=== PATIENT | male | born 1945 | race Caucasian/White ===

== ENCOUNTER 2017-03-12 14:29 | Emergency (ER) | payer OTHER ==
[~2017-03-12] VITALS: Ht 172.7 cm; Wt 84.8 kg
[2017-03-12] MEDS ORDERED: NEXIUM40 MG PO (14:41)
[2017-03-12] MEDS ORDERED: RANITIDINE HCL300 MG PO (14:42)
[2017-03-12] MEDS ORDERED: PRINIVIL20 MG PO (14:42)
[2017-03-12] MEDS ORDERED: SYNTHROID112 MCG PO (14:42)
[2017-03-12] MEDS ORDERED: FLOMAX0.4 MG PO (14:42)
[2017-03-12] MEDS ORDERED: CO Q-10100 MG PO (14:43)
[2017-03-12] MEDS ORDERED: MELATONIN3 MG PO (14:43)
[2017-03-12] MEDS ORDERED: GABAPENTIN 100100 MG PO (14:43)
[2017-03-12 15:23] LABS: HEMOGLOBIN 14.5 gm/dL (14.0-18.0); MCH 29.4 pg (26.0-34.0); MCHC 33.8 g/dL (28.0-37.0); MCV 86.9 fL (80.0-100.0); MPV 8.5 fl. (7.2-11.1); RBC 4.95 mil/uL (4.50-6.00); WBC 7.1 thou/uL (4.0-11.0)
[2017-03-12 15:27] LABS: CALCIUM 8.4 mg/dL (8.5-10.1); POTASSIUM 3.8 mmol/L (3.5-5.1)
[2017-03-12 15:38] LABS: ALBUMIN 3.7 g/dL (3.4-5.0); TOTAL BILIRUBIN 1.2 mg/dL (<0.1-1.0); TOTAL PROTEIN 7.1 g/dL (6.4-8.2)
[2017-03-12 15:41] LABS: URINE BILIRUBIN NEGATIVE (Negative); URINE BLOOD 3+ (Negative); URINE CLARITY CLEAR; URINE COLOR YELLOW; URINE GLUCOSE-RANDOM NEGATIVE (Negative); URINE KETONES NEGATIVE (Negative); URINE LEUKOCYTES-REFLEX NEGATIVE (Negative); URINE NITRITE-REFLEX NEGATIVE (Negative); URINE PROTEIN NEGATIVE (Negative); URINE SPECIFIC GRAVITY 1.025 (1.005-1.030); URINE UROBILINOGEN 0.2 E.U./dl (0.2-1.0)
[2017-03-12 15:46] LABS: SQUAMOUS 0-3 Few /LPF (0-3); URINE RBC >20 Many /HPF (0-2)
[2017-03-12 15:47] LABS: BACTERIA-REFLEX None Seen /HPF (None Seen); CASTS None Seen /LPF (None Seen); CRYSTALS None Seen /LPF (None Seen); URINE WBC-REFLEX 0-5 Rare /HPF (0-5)
[2017-03-12 16:00] VITALS: BP 165/83
== END 2017-03-12 16:02 | disposition home or self-care (01) ==
LOC: M.ERS 14:29
PROVIDERS: Physician Assistant
DX: N40.1 Benign prostatic hyperplasia with lower urinary tract symptoms (principal); R33.8 Other retention of urine; N13.8 Other obstructive and reflux uropathy; I10 Essential (primary) hypertension; E89.0 Postprocedural hypothyroidism

== ENCOUNTER → 2017-06-24 | Outpatient (CLI) | payer MEDICARE, OTHER ==
[~2017-06-24] MED LIST: CO Q-10100 MG PO; FLOMAX0.4 MG PO; GABAPENTIN 100100 MG PO; MELATONIN3 MG PO; NEXIUM40 MG PO; PRINIVIL20 MG PO; RANITIDINE HCL300 MG PO; SYNTHROID112 MCG PO
== END ==
LOC: M.MRI 06-18 12:34
DX: M47.892 Other spondylosis, cervical region (principal); I51.7 Cardiomegaly; M47.22 Other spondylosis with radiculopathy, cervical region; M48.02 Spinal stenosis, cervical region; M25.78 Osteophyte, vertebrae; M62.81 Muscle weakness (generalized); R07.89 Other chest pain; Z86.018 Personal history of other benign neoplasm

== ENCOUNTER → 2017-12-14 | Outpatient (CLI) | payer MEDICARE, OTHER | LOC: M.RAD 11:18 | DX: S52.501A Unspecified fracture of the lower end of right radius, initial encounter for closed fracture (principal); S52.601A Unspecified fracture of lower end of right ulna, initial encounter for closed fracture; I10 Essential (primary) hypertension; X58.XXXA Exposure to other specified factors, initial encounter; Y93.89 Activity, other specified; Y92.89 Other specified places as the place of occurrence of the external cause; Y99.8 Other external cause status ==

== ENCOUNTER → 2020-09-18 | Outpatient (CLI) | payer MEDICARE, OTHER ==
--- NOTE | 2020-09-18 16:29 | EXE ---
[facility] [address] [place] [address] STRESS ECHOCARDIOGRAM Name: ZULAY CURTIS Room: [facility]#: [id number] Admission: 09/18/20 Attend Phys: Roly Nguyen MD Discharge: Date of : 49 Date of Service: 09/18/20 1629 Report #: [id number] THIS REPORT FOR: cc: Javid Mabry MD, Dean L. MD Liston, Michael J. MD [facility] ~ APPROVED REPORT Study performed: 09/18/2020 14:57:45 Exam: Stress Echocardiogram Indication: Dyspnea Patient Location: Out-Patient Stress Nurse: Monica Castillo RN Supervising Physician: Jacques Dash MD Ht: 5 ft 8 in HR: 64 bpm BP: 135/75 mmHg Medical History Medical History: CAD Cardiac Risk Factors: Age, , HTN, FHX of CAD Procedure The patient underwent an Exercise Stress Test using the Apolinar Protocol. Blood pressure, heart rate, and EKG were monitored. An Echocardiogram was performed by hazardous material technician in four stages in quad fashion. At peak stress, four selected images were obtained and placed side by side with resting images for comparison. Stress Test Details Stress Test: Exercise stress testing was performed using a Apolinar protocol. HR Resting HR: 64 bpm Max Heart Rate (APMHR): 148 bpm Max HR Achieved: 125 bpm Target HR (85% APMHR): 125 bpm % of APMHR: 84 Recovery HR: 81 bpm HR response to stress: Normal HR response to stress BP Resting BP: 135/75 mmHg Max BP: 202/62 mmHg Recovery BP: 162/77 [place] [address] STRESS ECHOCARDIOGRAM Name: ZULAY CURTIS Room: [facility]#: [id number] Admission: 09/18/20 Attend Phys: Roly Nguyen MD Discharge: Date of : 49 Date of Service: 09/18/20 1629 Report #: [id number] BP response to stress: Normal blood pressure response to stress. ECG Resting ECG: Sinus Rhythm Stress ECG: Sinus Tachycardia ST Change: None Arrhythmia: None Recovery ECG: Sinus Rhythm Recovery ST Change: None Clinical Reason for Termination: Maximal effort Exercise duration: 9 min sec Highest Stage Achieved: Stage 3: 3.4 mph at 14% grade. Exercise capacity: 10.16 METs Overall Exercise Capacity for Age: Bordline normal to superior The patient exhibited good exercise tolerance and was without cardiac complaint. Stress ECG Conclusion The baseline twelve-lead EKG shows sinus rhythm without significant ST segment or T wave abnormality. EKGs obtained during and post exercise show sinus rhythm and sinus tachycardia with no significant ST segment or T wave changes when compared to baseline. There were no stress-induced arrhythmias. Pre-Stress Echo The resting Echocardiogram showed normal left ventricular contractility with an estimated Ejection Fraction of about 55-60%. The resting echocardiogram demonstrated normal wall motion in all wall segments. Post-Stress Echo The stress Echocardiogram showed normal left ventricular contractility with an estimated Ejection Fraction of about 65-70%. Compared to rest, there were no stress-induced wall motion abnormalities. Conclusion Clinical Response: Non-ischemic Exercise Capacity: Superior Stress ECG Response: Non-ischemic Stress Echo Images: [place] [address] STRESS ECHOCARDIOGRAM Name: ZULAY CURTIS Room: [facility]#: [id number] Admission: 09/18/20 Attend Phys: oRly Nguyen MD Discharge: Date of : 49 Date of Service: 09/18/20 1629 Report #: [id number] Other Information Study Quality: Good <ELECTRONICALLY SIGNED> By: Jacques Dash MD, FACC 09/18/20 1629 28 28 Jacques Dash MD, FACC /INF
== END ==
LOC: M.CRD 14:42
PROVIDERS: ATTEND Internal Medicine Cardiovascular Disease
DX: I25.10 Atherosclerotic heart disease of native coronary artery without angina pectoris (principal); R06.00 Dyspnea, unspecified